=== PATIENT | female | born 1950 | race Caucasian/White ===

== ENCOUNTER → 2023-03-25 | Outpatient (REF) | payer MEDICARE ==
[2023-03-25 17:30] LABS: BASO # 0.1 10^3/uL (0.0-0.2); BASO % 0.5 % (0.0-1.0); EOS # 0.1 10^3/uL (0.0-0.5); EOS % 1.3 % (0.0-3.0); HEMATOCRIT 44.4 % (36.0-47.0); HEMOGLOBIN 14.6 g/dl (12.0-15.5); LYMPH # 2.4 10^3/uL (1.5-5.0); LYMPH % 26.2 % (24.0-44.0); MEAN CORPUSCULAR HEMOGLOBIN 28.3 pg (27.0-33.0); MEAN CORPUSCULAR HGB CONC 32.9 g/dl (32.0-36.5); MEAN CORPUSCULAR VOLUME 86.2 fl (80.0-96.0); MONO # 0.5 10^3/uL (0.0-0.8); MONO % 5.6 % (2.0-8.0); PLATELET COUNT, AUTOMATED 332 10^3/uL (150-450); RED BLOOD COUNT 5.15 10^6/uL (4.00-5.40); WHITE BLOOD COUNT 9.2 10^3/uL (4.0-10.0)
[2023-03-25 17:52] LABS: ERYTHROCYTE SEDIMENTATION RATE 16 mm/hr (0-30)
[2023-03-25 17:55] LABS: BLOOD UREA NITROGEN 16 MG/DL (9-23); CALCIUM LEVEL 9.4 MG/DL (8.3-10.6); CARBON DIOXIDE LEVEL 31 MMOL/L (20-31); CHLORIDE LEVEL 104 MMOL/L (98-107); CREATININE FOR GFR 0.77 MG/DL (0.55-1.30); GLOMERULAR FILTRATION RATE > 60.0 (>39); GLUCOSE, FASTING 87 MG/DL (74-106); SODIUM LEVEL 143 MMOL/L (136-145)
== END ==
LOC: M SFHCADAM 15:03
PROVIDERS: ATTEND Physician Assistant
DX: M94.0 Chondrocostal junction syndrome [Tietze] (principal)

== ENCOUNTER → 2023-03-25 | Outpatient (CLI) | payer MEDICARE | LOC: M ADAMS 15:12 | PROVIDERS: ATTEND Physician Assistant | DX: M94.0 Chondrocostal junction syndrome [Tietze] (principal) ==

== ENCOUNTER 2023-11-21 06:01 | Day surgery (SDC) | payer OTHER ==
[~2023-11-21] VITALS: Ht 175.3 cm; Wt 83.3 kg
[~2023-11-21 06:01] MED LIST: CELE0.09 PO; FLAX1300 PO; OMEP40CA5 PO; POTA540T PO; VALS1TAB67 PO
[2023-11-21] MEDS: FLURBIPROFEN 0.03% OPHTH SOLN 2.5 ML OD SCH (06:32)
[2023-11-21] MEDS: CYCLOPENTOLATE 1% OPHTH SOLN 2ML BTL OD SCH (06:32)
[2023-11-21] MEDS: TETRACAINE 0.5% OPHTH SOLN 4ML OD SCH (06:33)
[2023-11-21] MEDS: PHENYLEPHRINE 2.5% OPHTH SOL 2ML OD SCH (06:33)
[2023-11-21] MEDS ORDERED: LR 1,000 ML IV SCH (07:00)
[2023-11-21] MEDS ORDERED: MIDAZOLAM 5MG/ML 1ML VIAL As Ordered ONE (07:37)
[2023-11-21] MEDS: LIDOCAINE 1% SDV 5ML VIAL As Ordered ONE (07:58)
[2023-11-21] MEDS: CEFUROXIME 1MG/0.1ML INTRACAMERAL INJ As Ordered ONE (08:01)
== END 2023-11-21 08:39 | disposition home or self-care (01) ==
LOC: M SDC 06:01
PROVIDERS: ATTEND Ophthalmology
DX: H25.11 Age-related nuclear cataract, right eye (principal); I10 Essential (primary) hypertension; Z79.899 Other long term (current) drug therapy; K21.9 Gastro-esophageal reflux disease without esophagitis
CPT/HCPCS: 66984; J0697; J2250; V2632

== ENCOUNTER → 2024-02-23 | Outpatient (CLI) | payer OTHER | LOC: M RAD 13:58 | PROVIDERS: ATTEND Physician Assistant | DX: M54.2 Cervicalgia (principal); R51.9 Headache, unspecified ==

== ENCOUNTER → 2024-02-23 | Outpatient (CLI) | payer OTHER | LOC: M ADAMS 12:09 | PROVIDERS: ATTEND Physician Assistant | DX: M50.321 Other cervical disc degeneration at C4-C5 level (principal); M50.322 Other cervical disc degeneration at C5-C6 level; M50.323 Other cervical disc degeneration at C6-C7 level; R51.9 Headache, unspecified ==

== ENCOUNTER → 2024-02-23 | Outpatient (REF) | payer OTHER ==
[2024-02-23 18:03] LABS: BASO # 0.1 10^3/uL (0.0-0.2); BASO % 0.6 % (0.0-1.0); EOS # 0.1 10^3/uL (0.0-0.5); EOS % 1.1 % (0.0-3.0); HEMATOCRIT 45.9 % (36.0-47.0); HEMOGLOBIN 15.3 g/dl (12.0-15.5); LYMPH # 2.7 10^3/uL (1.5-5.0); LYMPH % 28.8 % (24.0-44.0); MEAN CORPUSCULAR HEMOGLOBIN 28.4 pg (27.0-33.0); MEAN CORPUSCULAR HGB CONC 33.3 g/dl (32.0-36.5); MEAN CORPUSCULAR VOLUME 85.2 fl (80.0-96.0); MONO # 0.6 10^3/uL (0.0-0.8); MONO % 6.5 % (2.0-8.0); NEUTROPHILS % 62.5 % (36.0-66.0); PLATELET COUNT, AUTOMATED 360 10^3/uL (150-450); RED BLOOD COUNT 5.39 10^6/uL (4.00-5.40); WHITE BLOOD COUNT 9.5 10^3/uL (4.0-10.0)
[2024-02-23 18:11] LABS: ERYTHROCYTE SEDIMENTATION RATE 22 mm/hr (0-30)
[2024-02-23 18:31] LABS: BLOOD UREA NITROGEN 11 MG/DL (9-23); CALCIUM LEVEL 9.2 MG/DL (8.3-10.6); CARBON DIOXIDE LEVEL 29 MMOL/L (20-31); CHLORIDE LEVEL 106 MMOL/L (98-107); CREATININE FOR GFR 0.81 MG/DL (0.55-1.30); GLOMERULAR FILTRATION RATE > 60.0 (>39); GLUCOSE, FASTING 94 MG/DL (74-106); POTASSIUM SERUM 3.8 MMOL/L (3.5-5.1); SODIUM LEVEL 142 MMOL/L (136-145)
[2024-02-23 18:32] LABS: FREE T4 1.18 NG/DL (0.89-1.76); THYROID STIMULATING HORMONE 2.309 uIU/ML (0.55-4.78)
[2024-02-23 18:33] LABS: FOLATE > 24.0 NG/ML (>5.4)
[2024-02-23 18:34] LABS: VITAMIN B12 LEVEL 389 PG/ML (211-911)
== END ==
LOC: M SFHCADAM 11:58
PROVIDERS: ATTEND Physician Assistant
DX: S09.90XA Unspecified injury of head, initial encounter (principal); M54.2 Cervicalgia; R51.9 Headache, unspecified; Z79.899 Other long term (current) drug therapy; Y92.89 Other specified places as the place of occurrence of the external cause; Y93.89 Activity, other specified; Y99.8 Other external cause status

== ENCOUNTER → 2025-05-23 | Outpatient (CLI) | payer MEDICARE ==
[~2025-05-23] MED LIST changes: -POTA540T PO; +POTA540T5 PO
== END ==
LOC: M WHC 09:19
PROVIDERS: ATTEND Physician Assistant
DX: R92.0 Mammographic microcalcification found on diagnostic imaging of breast (principal); R92.2 Inconclusive mammogram
CPT/HCPCS: 76641; 76642; 77065; G0279